=== PATIENT | female | born 1995 | race Caucasian/White ===

== ENCOUNTER 2019-07-28 14:26 | Emergency (ER) | payer OTHER ==
[~2019-07-28] VITALS: Ht 165.1 cm; Wt 93.0 kg
[2019-07-28 14:47] LABS: URINE BILIRUBIN NEGATIVE (Negative); URINE BLOOD NEGATIVE (Negative); URINE CLARITY CLEAR; URINE COLOR YELLOW; URINE GLUCOSE-RANDOM NEGATIVE (Negative); URINE KETONES NEGATIVE (Negative); URINE LEUKOCYTES-REFLEX NEGATIVE (Negative); URINE NITRITE-REFLEX NEGATIVE (Negative); URINE PROTEIN NEGATIVE (Negative); URINE SPECIFIC GRAVITY 1.015 (1.005-1.030); URINE UROBILINOGEN 0.2 E.U./dl (0.2-1.0)
[2019-07-28 14:50] LABS: ABSOLUTE BASOPHILS 0.1 thou/uL (0.0-0.2); ABSOLUTE EOSINOPHILS 0.2 thou/uL (0.0-0.7); ABSOLUTE MONOCYTES 0.6 thou/uL (0.0-1.2); ABSOLUTE NEUTROPHILS 7.1 thou/uL (1.6-8.1); BASOPHILS 0.7 %; EOSINOPHILS 1.7 %; HEMATOCRIT 35.3 % (37.0-47.0); HEMOGLOBIN 11.9 gm/dL (12.0-15.0); LYMPHOCYTES 19.9 %; MCH 27.7 pg (26.0-34.0); MCHC 33.8 g/dL (28.0-37.0); MCV 82.1 fL (80.0-100.0); MONOCYTES 6.1 %; MPV 9.7 fl. (7.2-11.1); NUCLEATED RBCS 0 /100WBC; PLATELET COUNT* 242 thou/uL (150-400); POLYS 71.6 %; RDW-CV 14.6 % (10.5-14.5); WBC 9.9 thou/uL (4.0-11.0)
[2019-07-28 14:58] LABS: CALCIUM 8.7 mg/dL (8.5-10.1); CREATININE 0.8 mg/dL (0.6-1.3); POTASSIUM 3.7 mmol/L (3.5-5.1)
[2019-07-28 15:03] LABS: ALBUMIN 3.7 g/dL (3.4-5.0); TOTAL BILIRUBIN 0.1 mg/dL (<0.1-1.0); TOTAL PROTEIN 7.9 g/dL (6.4-8.2)
[2019-07-28] MEDS ORDERED: TYLENOL WITH CO1 TA1 PO (15:47)
[2019-07-28] MEDS ORDERED: ZOFRAN ODT4 MG PO (15:47)
[2019-07-28 15:51] VITALS: BP 119/68
== END 2019-07-28 15:53 | disposition home or self-care (01) ==
LOC: M.ERS 14:26
PROVIDERS: Nurse Practitioner Family
DX: R10.9 Unspecified abdominal pain (principal)

== ENCOUNTER 2020-04-08 20:25 | Emergency (ER) | payer BC ==
[~2020-04-08] VITALS: Ht 170.2 cm; Wt 65.8 kg
[~2020-04-08 20:25] MED LIST: TYLENOL WITH CO1 TA1 PO; ZOFRAN ODT4 MG PO
[2020-04-08] MEDS ORDERED: ASA81BEC PO (20:43)
[2020-04-08] MEDS ORDERED: PNV 29-1 TABLE1 EACH PO (20:43)
[2020-04-08] MEDS ORDERED: IRON240 M1 PO (20:44)
[2020-04-08 20:45] LABS: URINE BILIRUBIN NEGATIVE (Negative); URINE BLOOD 2+ (Negative); URINE CLARITY CLEAR; URINE COLOR YELLOW; URINE GLUCOSE-RANDOM NEGATIVE (Negative); URINE KETONES NEGATIVE (Negative); URINE LEUKOCYTES-REFLEX 1+ (Negative); URINE NITRITE-REFLEX NEGATIVE (Negative); URINE PROTEIN NEGATIVE (Negative); URINE SPECIFIC GRAVITY 1.015 (1.005-1.030); URINE UROBILINOGEN 0.2 E.U./dl (0.2-1.0)
[2020-04-08 20:55] LABS: ABSOLUTE EOSINOPHILS 0.1 thou/uL (0.0-0.7); ABSOLUTE MONOCYTES 0.7 thou/uL (0.0-1.2); ABSOLUTE NEUTROPHILS 8.7 thou/uL (1.6-8.1); BASOPHILS 0.4 %; EOSINOPHILS 1.3 %; HEMATOCRIT 32.3 % (37.0-47.0); LYMPHOCYTES 17.1 %; MCH 27.9 pg (26.0-34.0); MCV 82.1 fL (80.0-100.0); MONOCYTES 5.8 %; MPV 9.9 fl. (7.2-11.1); NUCLEATED RBCS 0 /100WBC; PLATELET COUNT* 202 thou/uL (150-400); POLYS 75.4 %; RBC 3.94 mil/uL (4.20-5.00); RDW-CV 14.5 % (10.5-14.5); WBC 11.6 thou/uL (4.0-11.0)
[2020-04-08 20:58] LABS: CASTS None Seen /LPF (None Seen); MUCUS 0-3 Light strn/LPF (None Seen); SQUAMOUS >10 Many /LPF (0-3)
[2020-04-08 20:59] LABS: URINE WBC-REFLEX 0-5 Rare /HPF (0-5)
[2020-04-08 21:00] LABS: CRYSTALS None Seen /LPF (None Seen); URINE RBC 0-2 Rare /HPF (0-2)
[2020-04-08 21:05] LABS: CALCIUM 8.3 mg/dL (8.5-10.1); CREATININE 0.6 mg/dL (0.6-1.3); POTASSIUM 3.6 mmol/L (3.5-5.1)
[2020-04-08 21:10] LABS: ALBUMIN 2.9 g/dL (3.4-5.0); TOTAL BILIRUBIN 0.1 mg/dL (<0.1-1.0); TOTAL PROTEIN 7.2 g/dL (6.4-8.2)
[2020-04-08] MEDS ORDERED: KEFLEX500 M1 PO (22:36)
[2020-04-08 22:53] VITALS: BP 132/74
== END 2020-04-08 22:53 | disposition home or self-care (01) ==
LOC: M.ERS 20:25
PROVIDERS: Emergency Medicine
DX: O23.42 Unspecified infection of urinary tract in pregnancy, second trimester (principal); Z3A.15 15 weeks gestation of pregnancy

== ENCOUNTER 2021-01-29 13:42 | Emergency (ER) | payer BC ==
[~2021-01-29] VITALS: Ht 152.4 cm; Wt 95.7 kg
[~2021-01-29 13:42] MED LIST changes: +ASA81BEC PO; +IRON240 M1 PO; +KEFLEX500 M1 PO; +PNV 29-1 TABLE1 EACH PO
[2021-01-29] MEDS ORDERED: [UNRECOGNIZED DRUG - REMARK] (13:57)
[2021-01-29] MEDS ORDERED: IBUPROFEN 600600 M1 PO ×2 (15:48→15:58)
[2021-01-29 16:26] VITALS: BP 123/65
== END 2021-01-29 16:26 | disposition home or self-care (01) ==
LOC: M.ERS 13:42
DX: S93.491A Sprain of other ligament of right ankle, initial encounter (principal); S63.591A Other specified sprain of right wrist, initial encounter; X50.1XXA Overexertion from prolonged static or awkward postures, initial encounter; Y93.89 Activity, other specified; Y92.89 Other specified places as the place of occurrence of the external cause; Y99.8 Other external cause status